=== PATIENT | female | born 1965 | race Caucasian/White ===

== ENCOUNTER → 2018-01-27 | Outpatient (CLI) | payer BC ==
--- NOTE | 2018-01-27 15:03 | KCIC ---
MRI Cervical Spine Without Contrast History: Cervical radiculitis, neck pain, right shoulder pain Technique: Multiplanar, multi sequential noncontrast MR imaging was performed of the cervical spine. Comparison: 01/01/2016 Findings: Cervical cord caliber is within normal limits without focal signal abnormality. There is no significant marrow edema. Cervical vertebral body stature and AP alignment are maintained. There is moderate degenerative disc disease at C4-C5, minimally at C5-6, minimal disc desiccation at other levels. There are small hemangiomas of the T1 and T2 vertebral bodies. C2-C3: Neural foramina and spinal canal are adequate. C3-C4: There is minimal disc osteophyte complex. Spinal canal and neural foramina are adequate. C4-C5: There is minimal disc osteophyte complex. There is mild buckling of the ligamentum flavum. Central canal is adequate about 12 mm. There is mild left uncovertebral degenerative change. There is mild to moderate narrowing of the left neural foramen. Right neural foramen is adequate. C5-C6: There is minimal disc osteophyte complex. Spinal canal and right neural foramen are adequate. There is very minimal narrowing of the left neural foramen due to uncovertebral degenerative change. C6-C7: Spinal canal and neural foramina are adequate. C7-T1: Neural foramina and spinal canal are adequate. Impression: 1. There is no cervical spinal stenosis. There is moderate degenerative disc disease C4-5, to lesser degree C5-6. There is minimal spondylosis. There is [id number] narrowing of the left C4-5 neural foramen, minimal narrowing on the left at C5-6 in part from uncovertebral degenerative change. Electronically signed by: Gregg Albert MD (01/27/2018 3:00 PM) [id number]
== END | disposition home or self-care (01) ==
LOC: KCIC MRI 13:19
PROVIDERS: ATTEND Anesthesiology Pain Medicine
DX: M50.321 Other cervical disc degeneration at C4-C5 level (principal); M47.892 Other spondylosis, cervical region; M48.02 Spinal stenosis, cervical region; M25.78 Osteophyte, vertebrae; D18.09 Hemangioma of other sites
CPT/HCPCS: 72141